=== PATIENT | female | born 1975 | race African-American/Black ===

== ENCOUNTER 2018-08-12 12:35 | Emergency (ER) | payer MEDICARE, OTHER ==
[~2018-08-12] VITALS: Ht 167.6 cm; Wt 107.0 kg
[~2018-08-12 12:35] MED LIST: COMBIVIR TABLE1 EACH; KALETRA 100-251 EACH; PROAIR HFA INH8.5 GM
--- OUTSIDE RECORDS SUMMARY | 2018-08-12 12:37 | XMS REPORT | Clinical Summary ---
Author Author [facility] Address Unknown Phone Unavailable Care Team Providers Care Ring Spinner Name Role Phone Heaven Zavala MD PCP Allergies Comments Active Allergy Reactions Severity Noted Date [place] 02/06/2018 seizures Prochlorperazine Other (See 02/06/2018 Comments) Medications End Date Status Medication Sig Dispensed Refills Start Date 02/09/2018 ondansetron (ZOFRAN) 4 MG Take 1 tablet 20 tablet 0 tablet (4 mg total) 8 by mouth every 8 (eight) hours as needed for nausea or vomiting for up to 3 days. 02/09/2018 acetaminophen-codeine Take 1-2 15 tablet 0 (TYLENOL WITH CODEINE #3) tablets by 8 300-30 mg per tablet mouth every 6 (six) hours as needed for moderate pain for up to 3 days. Active Problems Not on file Encounters Care Team Description Date Type Specialty Angelo Loyola MD Closed head injury, initial encounter (Primary Dx) 02/06/2018 Emergency Emergency Medicine after 08/11/2017 Social History Date Tobacco Use Types Packs/Day Years Used Never Smoker Smokeless Tobacco: Never Used Alcohol Use Drinks/Week oz/Week Comments No Sex Assigned at Date Recorded Not on file Industry Job Start Date Occupation Not on file Not on file Not on file Travel End Travel History Travel Start No recent travel history available. Last Filed Vital Signs Time Taken Vital Sign Reading 02/06/2018 4:58 PM CDT Blood Pressure 132/81 02/06/2018 4:58 PM CDT Pulse 68 02/06/2018 4:58 PM CDT Temperature 36.3 C (97.4 F) 02/06/2018 4:58 PM CDT Respiratory Rate 16 02/06/2018 4:58 PM CDT Oxygen Saturation 100% - Inhaled Oxygen - Concentration - Weight - 02/06/2018 3:03 PM CDT Height 167.6 cm (5' 6") - Body Mass Index - Plan of Treatment Health Maintenance Due Date Last Done Comments MMR VACCINES (1 of - 1974 Standard series) VARICELLA VACCINES (1 of 1986 2 - 2-dose adolescent series) CERVICAL CANCER SCREENING 1994 INFLUENZA VACCINE 04/16/2018 HEPATITIS B VACCINES Aged Out No longer eligible based on patient's age to complete this topic IPV VACCINES Aged Out No longer eligible based on patient's age to complete this topic MENINGOCOCCAL VACCINE Aged Out No longer eligible based on patient's age to complete this topic Procedures Comments Procedure Name Priority Date/Time Associated Diagnosis CT HEAD WO CONTRAST STAT 02/06/2018 4:00 PM CDT after 08/11/2017 Results * CT Head Wo Contrast (02/06/2018 4:00 PM CDT) Narrative Performed At EXAMINATION: CT HEAD WO CONTRAST [facility] CLINICAL HISTORY: [facility] with nausea and vomiting COMPARISON:None TECHNIQUE: Noncontrast enhanced images of the brain were obtained from the skull base to the vertex. Both soft tissue and bone reconstruction algorithms were performed.CT imaging was performed with iterative reconstruction technique and/or automated exposure control to reduce radiation dose. FINDINGS: The brain parenchyma shows no evidence of acute lesion. The cruz-white matter differentiation is preserved. No evidence of acute intra or extra-axial hemorrhage, mass, mass effect or acute territorial infarction. There is no acute hydrocephalus. Basal cisterns are patent. Beam hardening artifact appears details at the level of the skull base, including portions of the supraorbital frontal lobes, inferior temporal lobes, brainstem and cerebellum. No acute soft tissue hematoma or laceration. Paranasal sinuses shows no acute air-fluid levels. Mastoid air cells are clear.No skull fractures or aggressive bony lesions. IMPRESSION: No acute intracranial abnormality identified. [id number] Procedure Note Hm Interface, Radiology Results Incoming - 02/06/2018 4:07 PM CDT EXAMINATION: CT HEAD WO CONTRAST CLINICAL HISTORY: [facility] with nausea and vomiting COMPARISON: None TECHNIQUE: Noncontrast enhanced images of the brain were obtained from the skull base to the vertex. Both soft tissue and bone reconstruction algorithms were performed. CT imaging was performed with iterative reconstruction technique and/or automated exposure control to reduce radiation dose. FINDINGS: The brain parenchyma shows no evidence of acute lesion. The cruz-white matter differentiation is preserved. No evidence of acute intra or extra-axial hemorrhage, mass, mass effect or acute territorial infarction. There is no acute hydrocephalus. Basal cisterns are patent. Beam hardening artifact appears details at the level of the skull base, including portions of the supraorbital frontal lobes, inferior temporal lobes, brainstem and cerebellum. No acute soft tissue hematoma or laceration. Paranasal sinuses shows no acute air-fluid levels. Mastoid air cells are clear. No skull fractures or aggressive bony lesions. IMPRESSION: No acute intracranial abnormality identified. [id number] Performing Organization Address City/State/Zipcode Phone Number [facility] [address] [place] [address] after 08/11/2017 Insurance Payer Benefit Subscriber ID Type Phone Address Plan / Group MEDICARE MEDICARE xxxxxxxxxx Medicare [place], [place] PART A [place] B MEDICAID MEDICAID xxxxxxxxx Medicaid UHC MEDICAID [employer] xxxxxxxxx HMO COMM ST[employer]+ [facility] Advance Directives Patient has advance care planning documents on file. For more information, amos [place]ahona contact: [facility] [phone] [place] [address]
--- OUTSIDE RECORDS SUMMARY | 2018-08-12 12:37 | XMS REPORT | Summary of Care ---
Author Author LATISHA DIAZ M.D. Organization Unknown Address Unknown Phone Unavailable Care Team Providers Care B2B Sales Manager Name Role Phone LATISHA DIAZ M.D. 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 * Start : 01-May-2018 Active Lamivudine-Zidovudine 150-300 MG Oral Tablet TAKE 1 TABLET TWICE DAILY. * Quantity: 30 Refills: 0 LATISHA DIAZ M.D. * Start : 01-May-2018 Active SUMAtriptan Succinate 25 MG Oral Tablet TAKE 1 TABLET EVERY 2 HOURS NEEDED FOR MIGRAINE. MAXIMUM 8 TABLETS DAILY. * Quantity: 9 Refills: 5 LATISHA DIAZ M.D. * Start : 01-May-2018 Active Allergies and Adverse Reactions Name Dates Details No Known Drug Allergies (Allergy) Status: Active Procedures Procedure Dates Details MRI Brain wo contrast [id number] Date: 31-Jul-2018 Immunization Name Dates Details Immunizations not documented Family History Name Dates Details Family history of lupus erythematosus (V19.8, Z84.0) Status: Active Name Dates Details Family history of cerebrovascular accident (CVA) (V17.1, Z82.3) Status: Active Family history of diabetes mellitus (V18.0, Z83.3) Status: Active Family history of hypertension (V17.49, Z82.49) Status: Active Name Dates Details Family history of malignant neoplasm (V16.9, Z80.9) Status: Active Name Dates Details Family history of malignant neoplasm (V16.9, Z80.9) Status: Active Social History Name Dates Details Unknown if ever smoked Vital Signs Date Test Result Details [id number] BP Systolic 132 mm[Hg] Status: Comments: Location: LUE; Position: Sitting BP Diastolic 92 mm[Hg] Status: Comments: Location: LUE; Position: Sitting Height 67 in Status: Weight 240 lb Status: Body Mass Index Calculated 37.59 kg/m2 Status: Body Surface Area Calculated 2.18 m2 Status: Heart Rate 71 /min Status: Comments: Location: L Brachial Artery; Results Date Description Value Details Results not documented Plan of Care Name Dates Details Planned Observations MRI Brain wo contrast [id number] On: 14-Jan-2019 Intent Planned Goals not documented Planned Encounters Appointment; LATISHA DIAZ M.D. On: 05-Mar-2019 11:30 Interventions Provided Discussion/Summary* Ms Pelletier is a 42 y/o woman here with postconcussive headache which is self limiting and under control without medication. She incidentally was found to have very mild small vessel ischemic changes on her MRI. Given that she has HIV and is on several antiretrovirals, we will repeat MRI in February to ensure it is not progressive. * - MRI brain in February 2019 * - RTC after MRI in February Instructions Name Dates Details Instructions not documented Encounters Appointment; LATISHA DIAZ M.D. Encounter Diagnosis: Problem not documented On: 01-May-2018 10:30 Appointment; LATISHA DIAZ M.D. Encounter Diagnosis: Problem not documented On: 31-Jul-2018 11:30
[2018-08-12] MEDS ORDERED: PREDNISONE20 MG PO (13:21)
[2018-08-12] MEDS ORDERED: CYCLOBENZAPRINE5 MG PO (13:21)
== END 2018-08-12 13:52 | disposition home or self-care (01) ==
LOC: ER 12:35
DX: M25.511 Pain in right shoulder (principal); S46.811A Strain of other muscles, fascia and tendons at shoulder and upper arm level, right arm, initial encounter; X50.0XXA Overexertion from strenuous movement or load, initial encounter; Y92.008 Other place in unspecified non-institutional (private) residence as the place of occurrence of the external cause; B20 Human immunodeficiency virus [HIV] disease; D76.3 Other histiocytosis syndromes
CPT/HCPCS: 99283